=== PATIENT | male | born 1985 | race African-American/Black ===

== ENCOUNTER 2021-02-26 08:12 | Emergency (ER) | payer OTHER ==
[~2021-02-26] VITALS: Ht 193 cm; Wt 107.0 kg
[2021-02-26] MEDS ORDERED: ONDANSETRON HCL 4MG/2ML INJ IV STA (08:37)
[2021-02-26] MEDS ORDERED: KETOROLAC 30MG/ML VIAL IV STA (08:37)
[2021-02-26] MEDS ORDERED: SODIUM CHLORIDE 0.9% 1,000 ML IV ONE (08:45)
[2021-02-26 09:08] LABS: BASOPHILS % 0.2 % (0.0-2.0); EOSINOPHILS % 0.5 % (0.0-5.0); HEMATOCRIT. 39.5 % (42.0-52.0); LYMPHOCYTES % 15.4 % (20.0-50.0); MEAN CORPUSCULAR HEMOGLOBIN 31.2 pg (28.0-32.0); MEAN CORPUSCULAR VOLUME 95.1 fL (80.0-94.0); MEAN PLATELET VOLUME 7.4 fl (7.4-10.4); MONOCYTES % 10.1 % (2.0-8.0); NEUTROPHILS % 73.8 % (40.0-76.0); PLATELET 195 x1000/uL (130-400); RED BLOOD CELL COUNT 4.15 mill/uL (4.7-6.1)
[2021-02-26 09:11] LABS: CHLORIDE 109 mEq/L (98-107)
[2021-02-26 09:38] LABS: CLARITY URINE CLEAR (CLEAR); COLOR URINE DARK YELLOW (YELLOW); KETONES URINE 2+ (NEGATIVE); LEUKOCYTE ESTERASE URINE TRACE (NEGATIVE); NITRITE URINE NEGATIVE (NEGATIVE); OCCULT BLOOD URINE NEGATIVE (NEGATIVE); PH URINE 7.5 (4.5-8.0); PROTEIN URINE TRACE (NEGATIVE); SPECIFIC GRAVITY URINE 1.029 (1.005-1.030)
[2021-02-26] MEDS ORDERED: IMOD MT (10:40)
[2021-02-26] MEDS ORDERED: OMEP10CA5 MT (10:40)
[2021-02-26] MEDS ORDERED: ONDA8TAB13 MT (10:40)
[2021-02-26 11:00] VITALS: BP 122/80
== END 2021-02-26 11:15 | disposition home or self-care (01) ==
LOC: ER 08:12
DX: R50.9 Fever, unspecified (principal); M79.18 Myalgia, other site; Z20.822 Contact with and (suspected) exposure to COVID-19; R11.2 Nausea with vomiting, unspecified; R05.9 Cough, unspecified; R19.7 Diarrhea, unspecified; R10.13 Epigastric pain
CPT/HCPCS: 36415; 71045; 80053; 81003; 83690; 85025; 96361; 96374; 96375; 99284; C9803; J1885; J2405; J7030; U0003; U0005; Z7610

== ENCOUNTER 2021-04-13 11:56 | Emergency (ER) | payer MEDICAID, OTHER ==
[~2021-04-13] VITALS: Ht 195.6 cm; Wt 1121.0 kg
[~2021-04-13 11:56] MED LIST: IMOD MT; OMEP10CA5 MT; ONDA8TAB13 MT
[2021-04-13 12:18] VITALS: BP 140/78
[2021-04-13] MEDS ORDERED: CEFTRIAXONE SODIUM 500 MG/VIAL IM ONE (12:30)
[2021-04-13] MEDS ORDERED: DOXYCYCLINE HYCLATE 100MG CAPSULE PO ONE (12:30)
[2021-04-13] MEDS ORDERED: LIDOCAINE HCL 1% 20ML VIAL (Pyxis) INJ INFIL ONE (12:30)
[2021-04-13 12:55] LABS: CLARITY URINE CLOUDY (CLEAR); COLOR URINE YELLOW (YELLOW); KETONES URINE NEGATIVE (NEGATIVE); LEUKOCYTE ESTERASE URINE 3+ (NEGATIVE); NITRITE URINE NEGATIVE (NEGATIVE); OCCULT BLOOD URINE TRACE (NEGATIVE); PROTEIN URINE TRACE (NEGATIVE); UROBILINOGEN URINE 0.2 E.U./dL (0.2-1.0)
[2021-04-13] MEDS ORDERED: DOXY100T2 MT (13:28)
[2021-04-15 09:11] LABS: NEISSERIA GONORRHOEAE NAA Positive (Negative)
== END 2021-04-13 13:54 | disposition home or self-care (01) ==
LOC: ER 11:56
DX: R30.0 Dysuria (principal); R36.9 Urethral discharge, unspecified; Z20.2 Contact with and (suspected) exposure to infections with a predominantly sexual mode of transmission
CPT/HCPCS: 81003; 87086; 87491; 87591; 96372; 99283; J0696; J3490

== ENCOUNTER 2021-11-22 11:14 | Emergency (ER) | payer MEDICAID ==
[~2021-11-22] VITALS: Ht 188 cm; Wt 91.0 kg
[~2021-11-22 11:14] MED LIST changes: +DOXY100T2 MT
[2021-11-22 11:24] VITALS: BP 134/90
[2021-11-23] MEDS ORDERED: DOCU100T MT (11:39)
[2021-11-23] MEDS ORDERED: HYDR25SU37 RC (11:39)
== END 2021-11-22 17:02 | disposition left against medical advice (07) ==
LOC: ER 12:03
DX: Z53.21 Procedure and treatment not carried out due to patient leaving prior to being seen by health care provider (principal)

== ENCOUNTER 2021-11-23 09:49 | Emergency (ER) | payer MEDICAID ==
[~2021-11-23] VITALS: Ht 195.6 cm; Wt 91.0 kg
[2021-11-23] MEDS ORDERED: HYDR25SU37 RC (11:39)
[2021-11-23] MEDS ORDERED: DOCU100T MT (11:39)
[2021-11-23 12:23] VITALS: BP 156/74
== END 2021-11-23 12:24 | disposition home or self-care (01) ==
LOC: ER 09:58
DX: U07.1 COVID-19 (principal); J02.9 Acute pharyngitis, unspecified; K64.4 Residual hemorrhoidal skin tags
CPT/HCPCS: 87070; 87430; 99283

== ENCOUNTER 2023-05-23 14:02 | Emergency (ER) | payer MEDICAID ==
[~2023-05-23] VITALS: Ht 190.5 cm; Wt 111.0 kg
[~2023-05-23 14:02] MED LIST changes: +DOCU100T MT; +HYDR25SU37 RC
[2023-05-23 14:18] VITALS: O2SAT 97
[2023-05-23] MEDS ORDERED: TETANUS, DIPHTHERIA, PERTUSSIS VAC/PF 0.5ML (>10YR OLD) IM ONE (18:00)
[2023-05-23] MEDS ORDERED: CIPR500T5 MT (19:07)
[2023-05-23 19:26] VITALS: BP 118/78; PULSE 97; RESP 20; TEMP 98
== END 2023-05-23 19:27 | disposition home or self-care (01) ==
LOC: ER 14:02
DX: S91.332A Puncture wound without foreign body, left foot, initial encounter (principal); W50.0XXA Accidental hit or strike by another person, initial encounter; Y93.89 Activity, other specified; Y92.89 Other specified places as the place of occurrence of the external cause; Y99.8 Other external cause status
CPT/HCPCS: 73620; 90471; 90715; 99283

== ENCOUNTER 2024-11-26 08:46 | Emergency (ER) | payer MEDICAID ==
[~2024-11-26] VITALS: Ht 195.6 cm; Wt 113.0 kg
[~2024-11-26 08:46] MED LIST changes: +CIPR-452 MT; +ONDA-241 MT; -ONDA8TAB13 MT
[2024-11-26 08:53] VITALS: TEMP 36.8
[2024-11-26] MEDS ORDERED: DEX6 MT (09:43)
[2024-11-26] MEDS ORDERED: ALBU90AE INH (09:43)
[2024-11-26] MEDS ORDERED: IPRATROPIUM BROMIDE (0.02%) 0.5MG/2.5ML NEB HHN SCH (09:45)
[2024-11-26] MEDS: DEXAMETHASONE 4MG TABLET PO ONE (09:55)
[2024-11-26] MEDS: IPRATROPIUM BROMIDE (0.02%) 0.5MG/2.5ML NEB HHN ONE (10:10)
[2024-11-26] MEDS: ALBUTEROL (0.083%) 2.5MG/3ML NEB HHN ONE (10:11)
[2024-11-26 10:30] VITALS: PULSE 70; RESP 16; O2SAT 98
[2024-11-26 10:39] VITALS: BP 144/92; PULSE 88; RESP 20; O2SAT 100
== END 2024-11-26 10:40 | disposition home or self-care (01) ==
LOC: ER 08:46
DX: J06.9 Acute upper respiratory infection, unspecified (principal); J45.909 Unspecified asthma, uncomplicated; Z79.899 Other long term (current) drug therapy
CPT/HCPCS: 71045; 94640; 99283; J8540; Z7610 ×3; 94070; 94664